=== PATIENT | male | born 1980 | race Caucasian/White ===

== ENCOUNTER 2020-06-23 22:42 | Emergency (ER) | payer SELFPAY ==
[~2020-06-23] VITALS: Ht 175.3 cm; Wt 81.6 kg
[2020-06-23 23:20] VITALS: BP 113/52
--- NOTE | 2020-06-23 23:30 | NUR ---
LOGISTICS ACCOUNT MANAGER AT BED SIDE
== END 2020-06-24 00:17 | disposition home or self-care (01) ==
LOC: ER 22:44
DX: F41.9 Anxiety disorder, unspecified (principal); R00.2 Palpitations; F84.0 Autistic disorder; F43.10 Post-traumatic stress disorder, unspecified; F10.10 Alcohol abuse, uncomplicated; F17.200 Nicotine dependence, unspecified, uncomplicated; Y90.9 Presence of alcohol in blood, level not specified